=== PATIENT | male | born 1975 | race Caucasian/White ===

== ENCOUNTER 2017-06-30 03:19 | Inpatient (IN) | payer OTHER ==
[~2017-06-30] VITALS: Ht 182.9 cm; Wt 106.9 kg
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
[2017-06-30 03:58] LABS: BASOPHIL # 0.1 K/uL (0.0-0.2); BASOPHIL % 0.2 %; HEMATOCRIT 46.8 % (37.0-53.0); HEMOGLOBIN 16.4 g/dL (12.0-17.0); IMMATURE GRANULOCYTE # 0.1 K/uL (0.0-0.3); IMMATURE GRANULOCYTE % 0.5 %; LYMPHOCYTE % 4.8 %; MCH 31.4 pg (27.0-34.0); MCV 89.5 fl (83.0-98.0); MONOCYTE % 4.7 %; MPV 9.3 fl (9.4-12.4); NEUTROPHIL % 89.8 %; NRBC % 0 /100WBC (0-0.00); PLATELET COUNT 273 K/uL (150-450); RBC 5.23 M/uL (4.00-6.00); RDW-CV 13.3 % (11.9-14.6)
[2017-06-30 03:59] LABS: WBC 21.2 K/uL (4.0-11.0)
[2017-06-30 04:05] LABS: INR - (THERAPEUTIC) 0.96 (0.92-1.07); PROTIME 10.1 SECONDS (9.8-11.4); PTT 24 SECONDS (25-32)
[2017-06-30 04:13] LABS: ALBUMIN 3.8 gm/dL (3.5-5.0); ALK PHOS 79 IU/L (33-138); ALT 28 IU/L (12-78); ANION GAP 12.6 (10.0-19.0); AST 22 IU/L (10-40); BLOOD UREA NITROGEN 12 mg/dL (6-24); CALCIUM 9.3 mg/dL (8.5-10.5); CHLORIDE 105 mMol/L (96-110); CO2 26 mMol/L (22-32); CPK 266 IU/L (35-332); CREATININE 1.1 mg/dL (0.6-1.3); POTASSIUM 4.6 mMol/L (3.7-5.1); SODIUM 139 mMol/L (135-145); TOTAL BILIRUBIN 0.3 mg/dL (0.0-1.5); TOTAL PROTEIN 7.5 g/dL (6.0-8.4)
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
--- NOTE | 2017-06-30 14:33 | NUR ---
Pt is sleeping and spoke with nursing. AT this time is coming and does not anticipate any dc needs.
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
--- NOTE | 2017-07-01 04:41 | NUR ---
Significant Event: Patient is A/O, c/o pain to L) flank rated at a 6-7 on a 1-10 scale, see eMar for PRN meds given. LS clear, 1L O2 via NC to maintain SpO2 >92%. Scattered abrasions t/o. Ambulates SBA, stands at bedside. Does well with incentive spirometry. Follow up: Monitor
--- NOTE | 2017-07-01 18:56 | NUR ---
Significant Event: AAox3, denies N/T. Pupils 3mm brisk. Equal strong strength throughout. SBP 110-120's, HR 50-60's. L.S. clear and diminished in lower lobes, on 1L via N.[place]. produces 2500 at best with I.S. B.S. active, last BM 06/29. Urinates per urinal. Ambulates up ad etelvina in room. PIV R) hand SL'd. Dressing changed to L) hand. Follow up: Plan, D/C home tomorrow?
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
[2017-07-02] MEDS ORDERED: PERCOCET [ROXIC1 TAB PO (11:11)
== END 2017-07-02 14:35 | disposition disaster alternative care site (69) | DRG 200 ==
LOC: GACC 03:19 → GICU 05:18
PROVIDERS: Emergency Medicine; ADMIT Surgery
DX: S27.0XXA Traumatic pneumothorax, initial encounter (principal); S22.42XA Multiple fractures of ribs, left side, initial encounter for closed fracture; V29.88XA Motorcycle rider (driver) (passenger) injured in other specified transport accidents, initial encounter; Y93.9 Activity, unspecified; S00.81XA Abrasion of other part of head, initial encounter; F17.200 Nicotine dependence, unspecified, uncomplicated
CPT/HCPCS: G0480; J1650; J2270; J3010; J7030; Q9967